=== PATIENT | male | born 1985 ===

== ENCOUNTER 2019-08-20 04:56 | Inpatient (IN) ==
[2019-08-20] MEDS ORDERED: ONDANSETRON 4 MG/2 ML VIAL IV PRN (09:49)
[2019-08-20] MEDS ORDERED: DEXTROSE 50% 25 GM/50 ML VIAL IV PRN (09:49)
[2019-08-20] MEDS ORDERED: ACETAMINOPHEN 325 MG TABLET PO PRN (09:49)
[2019-08-20] MEDS ORDERED: GLUCAGON 1 MG VIAL IM PRN ×2 (09:49)
[2019-08-20] MEDS ORDERED: DEXTROSE 10% 250 ML BAG IV PRN (09:49)
[2019-08-20] MEDS: guaiFENesin 200 MG/10 ML UDCUP PO SCH ×4 (10:08→22:00)
[2019-08-20 11:05] LABS: Apearance,Urine CLEAR (Clear); Bilirubin,Urine Negative (Negative); Blood, Urine Negative (Negative); Glucose,Urine (UA) Negative (Negative); Ketones,Urine 5 mg/dL (Negative); Mucus,Urine Occasional /LPF (Occasional); Nitrite,Urine Negative (Negative); Protein,Urine Negative; Squamous Epithelial Cell,Urine Occasional /HPF (0-10); Urine Color Yellow (Yellow); Urine Specific Gravity 1.011 (1.001-1.035)
[2019-08-20 11:11] LABS: Basophils # 0.1 10*3/uL (0.0-0.2); Basophils % 0.7 % (0.0-0.8); Eosinophils # 0.1 10*3/uL (0.0-0.87); Eosinophils % 1.6 % (0.00-10.9); Hematocrit 37.4 VOL% (42.0-52.0); Hemoglobin 12.1 GM/DL (14.0-18.0); Immature Granulocytes % 5.7 %; Immature Granulocytes Absolute 0.43 #; Lymphocytes # 0.8 10*3/uL (1.4-4.0); Lymphocytes % 10.5 % (21.2-54.2); Mean Corpuscular HGB Conc 32.4 GM/DL (32-36); Monocytes % 8.2 % (1.7-12.7); NRBC # 0.03 10*3/uL; Neutrophils % 73.3 % (38.7-73.9); Platelet Count 286 T/CUMM (130-400); Red Blood Count 4.45 MC/CUMM (3.8-5.5); Red Cell Distribution Width 11.9 % (9.3-17.3); White Blood Count 7.5 T/CUMM (4-12)
[2019-08-20 11:22] LABS: Calcium 8.6 MG/DL (8.5-10.1); Osmolality,Calculated 273.8 MOS/KG (273-304)
[2019-08-20] MEDS: INSULIN LISPRO 100 UNIT/ML SUBCUT SCH ×3 (11:24→20:30)
[2019-08-20 11:41] LABS: Anisocytosis Slight; Atypical Lymphocytes Few; Band Neutrophils 3 % (0-10); Eosinophils 1 % (0-10); Lymphocytes 23 % (20-55); Platelet Estimate Normal; Segmented Neutrophils 64 % (50-85); Total Cells Counted 100
[2019-08-20] MEDS: POTASSIUM CHLORIDE 20 MEQ TABLET PO PRN ×3 (14:40→20:30)
[2019-08-20] MEDS: ENOXAPARIN 40 MG/0.4 ML SYRINGE SUBCUT SCH (20:30)
[2019-08-21] MEDS: guaiFENesin 200 MG/10 ML UDCUP PO SCH ×6 (01:53→21:51)
[2019-08-21 06:11] LABS: Basophils # 0.1 10*3/uL (0.0-0.2); Basophils % 1.2 % (0.0-0.8); Eosinophils # 0.2 10*3/uL (0.0-0.87); Eosinophils % 2.8 % (0.00-10.9); Hematocrit 37.2 VOL% (42.0-52.0); Hemoglobin 12.2 GM/DL (14.0-18.0); Immature Granulocytes % 9.8 %; Immature Granulocytes Absolute 0.76 #; Lymphocytes # 0.9 10*3/uL (1.4-4.0); Lymphocytes % 11.7 % (21.2-54.2); Mean Corpuscular HGB Conc 32.8 GM/DL (32-36); Mean Corpuscular Volume 83.6 FL (87-102); Mean Platelet Volume 9.2 FL (9.6-12.0); Monocytes % 9.8 % (1.7-12.7); NRBC # 0.03 10*3/uL; Neutrophils % 64.7 % (38.7-73.9); Platelet Count 272 T/CUMM (130-400); Red Blood Count 4.45 MC/CUMM (3.8-5.5); Red Cell Distribution Width 12.1 % (9.3-17.3); White Blood Count 7.8 T/CUMM (4-12)
[2019-08-21 06:36] LABS: Band Neutrophils 1 % (0-10); Eosinophils 3 % (0-10); Hypochromasia 1+; Lymphocytes 10 % (20-55); Microcytosis Slight; Myelocytes 1 %; Segmented Neutrophils 79 % (50-85); Total Cells Counted 100
[2019-08-21 06:37] LABS: Platelet Estimate Normal
[2019-08-21 06:38] LABS: Calcium 8.4 MG/DL (8.5-10.1); Osmolality,Calculated 269.2 MOS/KG (273-304); Risk Ratio 4.48; Thyroid Stimulating Hormone 1.56 uIU/ml (0.358-3.74); VLDL CHOLESTEROL 36.4 MG/DL
[2019-08-21 07:05] LABS: Ferritin 192.5 ng/ml (26-388)
[2019-08-21] MEDS: INSULIN LISPRO 100 UNIT/ML SUBCUT SCH ×4 (07:44→20:06)
[2019-08-21] MEDS ORDERED: PANTOPRAZOLE 40 MG TABLET PO SCH (09:00)
[2019-08-21] MEDS ORDERED: AZITHROMYCIN INJ 500 MG in SODIUM CHLORIDE 0.9% 250 ML IV SCH (12:30)
[2019-08-21] MEDS: cefTRIAXone 1,000 MG in SYRINGE 1 EACH IV SCH (14:39)
[2019-08-21] MEDS: AZITHROMYCIN 250 MG TABLET PO SCH (14:40)
[2019-08-21] MEDS: ENOXAPARIN 40 MG/0.4 ML SYRINGE SUBCUT SCH (21:50)
[2019-08-21] MEDS: CHOLESTYRAMINE 4 GM PACK PO SCH (21:51)
[2019-08-22] MEDS: guaiFENesin 200 MG/10 ML UDCUP PO SCH ×6 (02:13→21:04)
[2019-08-22 05:45] LABS: Basophils # 0.1 10*3/uL (0.0-0.2); Basophils % 0.9 % (0.0-0.8); Eosinophils # 0.4 10*3/uL (0.0-0.87); Eosinophils % 3.7 % (0.00-10.9); Hematocrit 36.6 VOL% (42.0-52.0); Immature Granulocytes % 10.9 %; Immature Granulocytes Absolute 1.03 #; Lymphocytes # 1.2 10*3/uL (1.4-4.0); Lymphocytes % 12.3 % (21.2-54.2); Mean Corpuscular HGB Conc 32.8 GM/DL (32-36); Mean Corpuscular Volume 84.1 FL (87-102); Neutrophils % 62.2 % (38.7-73.9); Platelet Count 255 T/CUMM (130-400); Red Blood Count 4.35 MC/CUMM (3.8-5.5); White Blood Count 9.4 T/CUMM (4-12)
[2019-08-22 06:17] LABS: Eosinophils 2 % (0-10); Hypochromasia Slight; Lymphocytes 19 % (20-55); Platelet Estimate Adequate; Segmented Neutrophils 75 % (50-85); Total Cells Counted 100
[2019-08-22 06:18] LABS: Microcytosis Slight
[2019-08-22 06:19] LABS: Calcium 8.3 MG/DL (8.5-10.1)
[2019-08-22 08:16] LABS: Ferritin 168.7 ng/ml (26-388)
[2019-08-22] MEDS: AZITHROMYCIN 250 MG TABLET PO SCH (09:03)
[2019-08-22] MEDS: CHOLESTYRAMINE 4 GM PACK PO SCH ×2 (09:03→21:04)
[2019-08-22] MEDS: INSULIN LISPRO 100 UNIT/ML SUBCUT SCH ×4 (09:04→20:11)
[2019-08-22] MEDS: cefTRIAXone 1,000 MG in SYRINGE 1 EACH IV SCH (09:06)
[2019-08-22] MEDS ORDERED: BENZONATATE 100 MG CAPSULE PO PRN (13:21)
[2019-08-22] MEDS: ENOXAPARIN 40 MG/0.4 ML SYRINGE SUBCUT SCH (21:04)
[2019-08-23] MEDS: guaiFENesin 200 MG/10 ML UDCUP PO SCH ×6 (02:49→21:07)
[2019-08-23 04:05] LABS: ABG Base Excess 0.1 MMOL/L (-2.5-2.5); ABG HCO3 24.5 MMOL/L (20-26); ABG PCO2 40.2 MM HG (35-48); ABG PH 7.399 (7.35-7.45); ABG PO2 90.7 MM HG (80-95); Allen Test Positive
[2019-08-23 06:00] LABS: Basophils # 0.1 10*3/uL (0.0-0.2); Basophils % 0.9 % (0.0-0.8); Eosinophils # 0.3 10*3/uL (0.0-0.87); Eosinophils % 3.8 % (0.00-10.9); Hematocrit 37.3 VOL% (42.0-52.0); Hemoglobin 12.1 GM/DL (14.0-18.0); Immature Granulocytes % 9.6 %; Immature Granulocytes Absolute 0.87 #; Lymphocytes % 11.3 % (21.2-54.2); Mean Corpuscular HGB Conc 32.4 GM/DL (32-36); Mean Corpuscular Volume 84.4 FL (87-102); Mean Platelet Volume 9.4 FL (9.6-12.0); Monocytes % 9.5 % (1.7-12.7); Neutrophils % 64.9 % (38.7-73.9); Platelet Count 247 T/CUMM (130-400); Red Blood Count 4.42 MC/CUMM (3.8-5.5)
[2019-08-23 06:28] LABS: Ferritin 164.2 ng/ml (26-388)
[2019-08-23 06:41] LABS: Band Neutrophils 1 % (0-10); Eosinophils 3 % (0-10); Lymphocytes 16 % (20-55); Segmented Neutrophils 75 % (50-85); Total Cells Counted 100
[2019-08-23 06:42] LABS: Hypochromasia Slight; Microcytosis Slight; Platelet Estimate Adequate
[2019-08-23 06:53] LABS: Calcium 8.1 MG/DL (8.5-10.1)
[2019-08-23] MEDS: INSULIN LISPRO 100 UNIT/ML SUBCUT SCH ×4 (08:07→20:15)
[2019-08-23] MEDS: AZITHROMYCIN 250 MG TABLET PO SCH (08:52)
[2019-08-23] MEDS: CHOLESTYRAMINE 4 GM PACK PO SCH ×2 (08:53→20:15)
[2019-08-23] MEDS: cefTRIAXone 1,000 MG in SYRINGE 1 EACH IV SCH (08:54)
[2019-08-23] MEDS: ENOXAPARIN 40 MG/0.4 ML SYRINGE SUBCUT SCH (20:15)
[2019-08-24] MEDS: guaiFENesin 200 MG/10 ML UDCUP PO SCH ×3 (02:40→09:28)
[2019-08-24 05:51] LABS: Ferritin 144.8 ng/ml (26-388)
[2019-08-24] MEDS: INSULIN LISPRO 100 UNIT/ML SUBCUT SCH ×2 (08:25→12:05)
[2019-08-24] MEDS: AZITHROMYCIN 250 MG TABLET PO SCH (08:25)
[2019-08-24] MEDS: CHOLESTYRAMINE 4 GM PACK PO SCH (08:25)
[2019-08-24] MEDS: cefTRIAXone 1,000 MG in SYRINGE 1 EACH IV SCH (08:25)
[2019-08-24 11:57] VITALS: BP 130/77
== END 2019-08-24 13:49 | disposition home or self-care (01) | DRG 177 ==
LOC: N.2E 07:19 → SUATTDRO 07:19
PROVIDERS: ADMIT Internal Medicine; ATTEND Hospitalist

== ENCOUNTER 2019-12-28 17:37 | Inpatient (IN) ==
[2019-12-28] MEDS ORDERED: VANCOMYCIN INJ 1,000 MG in SODIUM CHLORIDE 0.9% 250 ML IV STA (18:06)
[2019-12-28] MEDS ORDERED: SODIUM CHLORIDE 0.9% 1,000 ML IV STA (18:07)
[2019-12-28] MEDS ORDERED: IBUPROFEN 800 MG TABLET PO STA (18:17)
[2019-12-28] MEDS ORDERED: ONDANSETRON 4 MG/2 ML VIAL IV ONE (18:23)
[2019-12-28] MEDS ORDERED: HYDROmorphone 2 MG/1 ML VIAL IV STA (18:23)
[2019-12-28 19:07] LABS: Albumin 3.4 G/DL (3.4-5.0); Bilirubin,Total 1.4 MG/DL (0.2-1.0); Calcium 8.7 MG/DL (8.5-10.1); Osmolality,Calculated 274.1 MOS/KG (273-304); Total Protein 7.5 G/DL (6.4-8.3)
[2019-12-28] MEDS ORDERED: IBUPROFEN 600 MG TABLET ONE (19:12)
[2019-12-28 19:25] LABS: Basophils % 0.2 % (0.0-0.8); Eosinophils # 0.1 10*3/uL (0.0-0.87); Hematocrit 37.1 VOL% (42.0-52.0); Hemoglobin 12.2 GM/DL (14.0-18.0); Immature Granulocytes % 0.7 %; Immature Granulocytes Absolute 0.08 #; Lymphocytes % 8.1 % (21.2-54.2); Mean Corpuscular HGB Conc 32.9 GM/DL (32-36); Mean Corpuscular Volume 83.7 FL (87-102); Mean Platelet Volume 9.7 FL (9.6-12.0); Platelet Count 174 T/CUMM (130-400); Red Blood Count 4.43 MC/CUMM (3.8-5.5); Red Cell Distribution Width 12.9 % (9.3-17.3)
[2019-12-28] MEDS ORDERED: diphenhydrAMINE CAP 25 MG CAPSULE PO PRN (20:41)
[2019-12-28] MEDS ORDERED: MORPHINE 4 MG/1 ML VIAL IV PRN (20:41)
[2019-12-28] MEDS ORDERED: guaiFENesin/DM ER 600-30 MG TABLET PO PRN (20:41)
[2019-12-28] MEDS ORDERED: NICOTINE 21 MG/24 HR PATCH TRANSDERM PRN (20:41)
[2019-12-28] MEDS ORDERED: DEXTROSE 50% 25 GM/50 ML VIAL IV PRN ×2 (20:41)
[2019-12-28] MEDS ORDERED: hydrALAZINE 20 MG/1 ML VIAL IV PRN (20:41)
[2019-12-28] MEDS ORDERED: DOCUSATE SODIUM 100 MG CAPSULE PO PRN (20:41)
[2019-12-28] MEDS ORDERED: GLUCAGON 1 MG VIAL IM PRN ×2 (20:41)
[2019-12-28] MEDS ORDERED: ZALEPLON 5 MG CAPSULE PO PRN (20:41)
[2019-12-28] MEDS ORDERED: ALBUTEROL 2.5 MG/3 ML NEB RESP TX PRN (20:41)
[2019-12-28] MEDS: PIPERACILLIN/TAZOBACTAM 3,375 MG in SODIUM CHLORIDE 0.9% 100 ML IV SCH (23:14)
[2019-12-28] MEDS: SODIUM CHLORIDE 0.9% 1,000 ML IV SCH (23:14)
[2019-12-29] MEDS: INSULIN LISPRO 100 UNIT/ML SUBCUT SCH ×5 (00:10→21:29)
[2019-12-29] MEDS: VANCOMYCIN INJ 1,500 MG in SODIUM CHLORIDE 0.9% 500 ML IV SCH ×2 (05:35→18:06)
[2019-12-29] MEDS: SODIUM CHLORIDE 0.9% 1,000 ML IV SCH ×2 (05:36→23:03)
[2019-12-29 06:39] LABS: Basophils % 0.2 % (0.0-0.8); Eosinophils # 0.1 10*3/uL (0.0-0.87); Eosinophils % 0.7 % (0.00-10.9); Hematocrit 38.1 VOL% (42.0-52.0); Hemoglobin 12.6 GM/DL (14.0-18.0); Immature Granulocytes % 0.6 %; Immature Granulocytes Absolute 0.07 #; Lymphocytes # 0.9 10*3/uL (1.4-4.0); Lymphocytes % 7.8 % (21.2-54.2); Mean Corpuscular HGB Conc 33.1 GM/DL (32-36); Mean Corpuscular Volume 83.2 FL (87-102); Mean Platelet Volume 9.8 FL (9.6-12.0); Monocytes % 11.2 % (1.7-12.7); Neutrophils % 79.5 % (38.7-73.9); Platelet Count 171 T/CUMM (130-400); Red Blood Count 4.58 MC/CUMM (3.8-5.5); White Blood Count 11.2 T/CUMM (4-12)
[2019-12-29 06:52] LABS: Calcium 8.5 MG/DL (8.5-10.1); Osmolality,Calculated 281.8 MOS/KG (273-304)
[2019-12-29] MEDS: ENOXAPARIN 40 MG/0.4 ML SYRINGE SUBCUT SCH (09:06)
[2019-12-29] MEDS: PANTOPRAZOLE 40 MG TABLET PO SCH (09:06)
[2019-12-29] MEDS: lisinopriL 5 MG TABLET PO SCH (09:11)
[2019-12-29] MEDS: PIPERACILLIN/TAZOBACTAM 3,375 MG in SODIUM CHLORIDE 0.9% 100 ML IV SCH ×4 (17:45→21:29)
[2019-12-29] MEDS: ACETAMINOPHEN 325 MG TABLET PO PRN (21:29)
[2019-12-29] MEDS: INSULIN GLARGINE 100 UNIT/ML SUBCUT SCH (21:29)
[2019-12-30] MEDS: ONDANSETRON 4 MG/2 ML VIAL IV PRN (00:23)
[2019-12-30] MEDS: VANCOMYCIN INJ 1,500 MG in SODIUM CHLORIDE 0.9% 500 ML IV SCH (05:38)
[2019-12-30 06:00] LABS: Basophils % 0.2 % (0.0-0.8); Eosinophils # 0.1 10*3/uL (0.0-0.87); Eosinophils % 0.8 % (0.00-10.9); Hematocrit 37.5 VOL% (42.0-52.0); Immature Granulocytes % 0.8 %; Lymphocytes # 1.2 10*3/uL (1.4-4.0); Lymphocytes % 9.9 % (21.2-54.2); Mean Corpuscular Volume 83.7 FL (87-102); Mean Platelet Volume 9.5 FL (9.6-12.0); Monocytes % 10.8 % (1.7-12.7); Neutrophils % 77.5 % (38.7-73.9); Platelet Count 180 T/CUMM (130-400); Red Blood Count 4.48 MC/CUMM (3.8-5.5); Red Cell Distribution Width 12.8 % (9.3-17.3); White Blood Count 12.4 T/CUMM (4-12)
[2019-12-30 06:51] LABS: Calcium 8.1 MG/DL (8.5-10.1); Osmolality,Calculated 276.8 MOS/KG (273-304)
[2019-12-30] MEDS: ACETAMINOPHEN 325 MG TABLET PO PRN (09:36)
[2019-12-30] MEDS: lisinopriL 5 MG TABLET PO SCH (09:36)
[2019-12-30] MEDS: PIPERACILLIN/TAZOBACTAM 3,375 MG in SODIUM CHLORIDE 0.9% 100 ML IV SCH ×2 (09:37→16:16)
[2019-12-30] MEDS: PANTOPRAZOLE 40 MG TABLET PO SCH (09:37)
[2019-12-30] MEDS: ENOXAPARIN 40 MG/0.4 ML SYRINGE SUBCUT SCH (09:37)
[2019-12-30] MEDS: INSULIN LISPRO 100 UNIT/ML SUBCUT SCH ×4 (09:37→20:33)
[2019-12-30] MEDS ORDERED: ALBUTEROL 2.5 MG/3 ML NEB RESP TX PRN (12:57)
[2019-12-30] MEDS ORDERED: FUROSEMIDE 20 MG/2 ML VIAL IV ONE (14:13)
[2019-12-30] MEDS ORDERED: VANCOMYCIN INJ 2,500 MG in SODIUM CHLORIDE 0.9% 500 ML IV ONE (20:00)
[2019-12-30] MEDS: POTASSIUM CHLORIDE 20 MEQ TABLET PO PRN ×2 (20:33→22:46)
[2019-12-30] MEDS: metFORMIN 500 MG TABLET PO SCH (20:33)
[2019-12-30] MEDS: INSULIN GLARGINE 100 UNIT/ML SUBCUT SCH (20:33)
[2019-12-31] MEDS: PIPERACILLIN/TAZOBACTAM 3,375 MG in SODIUM CHLORIDE 0.9% 100 ML IV SCH ×3 (01:21→11:41)
[2019-12-31] MEDS: POTASSIUM CHLORIDE 20 MEQ TABLET PO PRN (01:24)
[2019-12-31 05:40] LABS: Basophils % 0.4 % (0.0-0.8); Eosinophils # 0.3 10*3/uL (0.0-0.87); Eosinophils % 4.3 % (0.00-10.9); Hematocrit 37.4 VOL% (42.0-52.0); Hemoglobin 12.4 GM/DL (14.0-18.0); Immature Granulocytes % 0.8 %; Immature Granulocytes Absolute 0.06 #; Lymphocytes # 1.1 10*3/uL (1.4-4.0); Lymphocytes % 14.7 % (21.2-54.2); Mean Corpuscular HGB Conc 33.2 GM/DL (32-36); Mean Corpuscular Volume 81.8 FL (87-102); Mean Platelet Volume 9.6 FL (9.6-12.0); Monocytes % 9.7 % (1.7-12.7); Neutrophils % 70.1 % (38.7-73.9); Platelet Count 192 T/CUMM (130-400); Red Blood Count 4.57 MC/CUMM (3.8-5.5); Red Cell Distribution Width 12.8 % (9.3-17.3); White Blood Count 7.4 T/CUMM (4-12)
[2019-12-31 05:58] LABS: Calcium 8.3 MG/DL (8.5-10.1); Osmolality,Calculated 280.4 MOS/KG (273-304)
[2019-12-31 06:02] LABS: Risk Ratio 3.9; VLDL CHOLESTEROL 20.4 MG/DL
[2019-12-31] MEDS: INSULIN LISPRO 100 UNIT/ML SUBCUT SCH ×4 (08:35→21:36)
[2019-12-31] MEDS: lisinopriL 5 MG TABLET PO SCH (08:36)
[2019-12-31] MEDS: ENOXAPARIN 40 MG/0.4 ML SYRINGE SUBCUT SCH (08:36)
[2019-12-31] MEDS: VANCOMYCIN INJ 2,000 MG in SODIUM CHLORIDE 0.9% 500 ML IV SCH ×2 (08:36→20:41)
[2019-12-31] MEDS: sitaGLIPtin 100 MG TABLET PO SCH (08:36)
[2019-12-31] MEDS: PANTOPRAZOLE 40 MG TABLET PO SCH (08:36)
[2019-12-31] MEDS: metFORMIN 500 MG TABLET PO SCH ×2 (08:36→20:41)
[2019-12-31] MEDS: ONDANSETRON 4 MG/2 ML VIAL IV PRN (11:41)
[2019-12-31] MEDS: INSULIN GLARGINE 100 UNIT/ML SUBCUT SCH (20:41)
[2020-01-01] MEDS: PIPERACILLIN/TAZOBACTAM 3,375 MG in SODIUM CHLORIDE 0.9% 100 ML IV SCH ×3 (01:02→18:14)
[2020-01-01 06:23] LABS: Basophils % 0.7 % (0.0-0.8); Eosinophils # 0.4 10*3/uL (0.0-0.87); Eosinophils % 5.9 % (0.00-10.9); Hematocrit 38.2 VOL% (42.0-52.0); Hemoglobin 12.5 GM/DL (14.0-18.0); Immature Granulocytes % 0.5 %; Immature Granulocytes Absolute 0.03 #; Lymphocytes % 16.3 % (21.2-54.2); Mean Corpuscular HGB Conc 32.7 GM/DL (32-36); Mean Corpuscular Volume 83.2 FL (87-102); Mean Platelet Volume 9.4 FL (9.6-12.0); Monocytes % 9.1 % (1.7-12.7); Neutrophils % 67.5 % (38.7-73.9); Platelet Count 216 T/CUMM (130-400); Red Blood Count 4.59 MC/CUMM (3.8-5.5); White Blood Count 6.1 T/CUMM (4-12)
[2020-01-01 06:38] LABS: Calcium 8.4 MG/DL (8.5-10.1); Osmolality,Calculated 280.5 MOS/KG (273-304)
[2020-01-01] MEDS: sitaGLIPtin 100 MG TABLET PO SCH (08:43)
[2020-01-01] MEDS: metFORMIN 500 MG TABLET PO SCH ×2 (08:43→21:41)
[2020-01-01] MEDS: ENOXAPARIN 40 MG/0.4 ML SYRINGE SUBCUT SCH (08:43)
[2020-01-01] MEDS: INSULIN LISPRO 100 UNIT/ML SUBCUT SCH ×4 (08:45→21:42)
[2020-01-01] MEDS: VANCOMYCIN INJ 2,000 MG in SODIUM CHLORIDE 0.9% 500 ML IV SCH ×2 (09:48→23:01)
[2020-01-01] MEDS: PANTOPRAZOLE 40 MG TABLET PO SCH (09:48)
[2020-01-01] MEDS: lisinopriL 5 MG TABLET PO SCH (09:48)
[2020-01-01] MEDS ORDERED: BUPIVACAINE 0.5% 50 ML VIAL ONE (13:32)
[2020-01-01] MEDS ORDERED: cefTRIAXone 1,000 MG VIAL ONE (13:35)
[2020-01-01] MEDS ORDERED: propofoL 200 MG/20 ML VIAL IV ONE (13:56)
[2020-01-01] MEDS ORDERED: LIDOCAINE 1% 5 ML VIAL ONE (13:56)
[2020-01-01] MEDS ORDERED: SEVOFLURANE 1 UNIT/15 MINUTE INH ONE (13:57)
[2020-01-01] MEDS ORDERED: MIDAZOLAM 2 MG/2 ML VIAL ONE (13:57)
[2020-01-01] MEDS ORDERED: ONDANSETRON 4 MG/2 ML VIAL ONE (13:57)
[2020-01-01] MEDS ORDERED: fentaNYL 100 MCG/2 ML VIAL ONE (13:57)
[2020-01-01] MEDS ORDERED: LACTATED RINGERS 1,000 ML IV ONE (13:57)
[2020-01-01] MEDS ORDERED: HYDROmorphone 2 MG/1 ML VIAL ONE (14:09)
[2020-01-01] MEDS ORDERED: ONDANSETRON 4 MG/2 ML VIAL IV PRN (14:13)
[2020-01-01] MEDS ORDERED: HYDROmorphone 2 MG/1 ML VIAL IV PRN (14:13)
[2020-01-01] MEDS: INSULIN GLARGINE 100 UNIT/ML SUBCUT SCH (21:41)
[2020-01-02] MEDS: ACETAMINOPHEN 325 MG TABLET PO PRN (00:51)
[2020-01-02] MEDS: PIPERACILLIN/TAZOBACTAM 3,375 MG in SODIUM CHLORIDE 0.9% 100 ML IV SCH ×2 (00:51→11:25)
[2020-01-02 07:00] LABS: Basophils % 0.5 % (0.0-0.8); Eosinophils # 0.4 10*3/uL (0.0-0.87); Hematocrit 39.9 VOL% (42.0-52.0); Hemoglobin 13.1 GM/DL (14.0-18.0); Immature Granulocytes % 1.2 %; Immature Granulocytes Absolute 0.07 #; Lymphocytes # 0.8 10*3/uL (1.4-4.0); Lymphocytes % 13.7 % (21.2-54.2); Mean Corpuscular HGB Conc 32.8 GM/DL (32-36); Mean Corpuscular Volume 82.8 FL (87-102); Mean Platelet Volume 9.1 FL (9.6-12.0); Monocytes % 8.9 % (1.7-12.7); Neutrophils % 69.7 % (38.7-73.9); Platelet Count 225 T/CUMM (130-400); Red Blood Count 4.82 MC/CUMM (3.8-5.5); Red Cell Distribution Width 12.9 % (9.3-17.3)
[2020-01-02] MEDS: INSULIN LISPRO 100 UNIT/ML SUBCUT SCH ×2 (07:04→11:27)
[2020-01-02 07:15] LABS: Calcium 8.5 MG/DL (8.5-10.1); Osmolality,Calculated 276.7 MOS/KG (273-304)
[2020-01-02] MEDS: ENOXAPARIN 40 MG/0.4 ML SYRINGE SUBCUT SCH (08:32)
[2020-01-02] MEDS: lisinopriL 5 MG TABLET PO SCH (08:32)
[2020-01-02] MEDS: PANTOPRAZOLE 40 MG TABLET PO SCH (08:32)
[2020-01-02] MEDS: sitaGLIPtin 100 MG TABLET PO SCH (08:32)
[2020-01-02] MEDS: VANCOMYCIN INJ 2,000 MG in SODIUM CHLORIDE 0.9% 500 ML IV SCH (09:13)
[2020-01-02] MEDS: metFORMIN 500 MG TABLET PO SCH (09:14)
[2020-01-02 12:17] VITALS: BP 113/59
== END 2020-01-02 17:07 | disposition home or self-care (01) | DRG 988 ==
LOC: N.ED 17:37 → N.EDINP 20:41 → INTOOBSV 20:41 → N.EDINP 21:28 → N.3E 21:32 → SUATTDRO 12-31 08:29
PROVIDERS: ADMIT Internal Medicine; ATTEND Internal Medicine